=== PATIENT | male | born 1985 | race Caucasian/White ===

== ENCOUNTER 2016-12-11 17:18 | Emergency (ER) | payer SELFPAY ==
--- NOTE | 2017-01-01 08:06 | ER ---
ADMIT: 12/11/2016 RM/LOC: ER [facility] MR#: [id number] [address] [id number] JODIE SINCLAIR [address] [facility] [address] [place] [address] Emergency Room Report SEX: M AGE: 31 : 1985 DATE: 12/11/2016 HISTORY OF PRESENT ILLNESS: A 31-year-old gentleman was at work when a board somehow flew up and hit him in the chin. This happened around 8:00 this morning. He comes to the emergency department now with a severe jaw pain and inability to bite normally. See T-sheet for history and physical. CT of the mandible reveals mandibular fracture. I did speak with Dr. Cristobal, ENT in [place], who recommended amoxicillin, pain control, follow up with Dr. Albarran on Tuesday. The patient was instructed to only a soft diet and follow up on Tuesday. DIAGNOSIS: Jaw fracture. Norman Holcomb MD/ hang JOB #: [id number] CC: Norman Holcomb MD, Attending Physician Jaime Albarran MD, Family Physician
== END 2016-12-11 19:10 | disposition home or self-care (01) ==
LOC: ER 17:18
DX: S02.609A Fracture of mandible, unspecified, initial encounter for closed fracture (principal); W22.8XXA Striking against or struck by other objects, initial encounter; Y92.69 Other specified industrial and construction area as the place of occurrence of the external cause; Y99.0 Civilian activity done for income or pay